=== PATIENT | male | born 1995 | race Caucasian/White ===

== ENCOUNTER 2016-09-16 08:30 | Emergency (ER) | payer BC ==
[~2016-09-16] VITALS: Wt 87.0 kg
[2016-09-16] MEDS ORDERED: KETOROLAC 30 MG INJ IV STA (09:03)
[2016-09-16] MEDS ORDERED: SOD CHLORIDE 0.9% 1,000 ML IV STA (09:03)
[2016-09-16 09:26] LABS: BASOPHIL # 0.1 10^3/ul (0.0-0.1); BASOPHILS % 0.5 % (0.0-2.0); EOSINOPHILS # 0.1 10^3/ul (0.0-0.5); EOSINOPHILS % 1.4 % (0.0-7.0); HEMATOCRIT 44.4 % (42.0-52.0); HEMOGLOBIN 15.1 g/dl (14.0-18.0); LYMPHOCYTES # 1.6 10^3/ul (0.8-2.9); LYMPHOCYTES % 17.5 % (15.0-51.0); MEAN CORPUSCULAR VOLUME 91.2 fl (82.0-101.0); MEAN PLATELET VOLUME 9.7 fl (7.4-10.4); MONOCYTES % 10.5 % (0.0-11.0); NEUTROPHIL # 6.4 10^3/ul (1.6-7.5); NEUTROPHILS % 69.9 % (39.0-77.0); PLATELET COUNT 343 10^3/UL (140-415); RED BLOOD COUNT 4.87 10^6/ul (4.70-6.10); RED CELL DISTRIBUTION WIDTH 12.6 % (11.5-14.5); WHITE BLOOD COUNT 9.1 10^3/ul (4.8-10.8)
--- NOTE | 2016-09-16 09:48 | RADRPT ---
PROCEDURE: CT Abdomen and pelvis without contrast. CLINICAL INDICATION: Right lower quadrant abdominal pain TECHNIQUE: CT scan of the abdomen and pelvis without contrast was performed on a multidetector hig h-resolution CT scan. . Coronal and sagittal reformatted images were obtained from the axial [facility] e images. Standard CT scan of the abdomen pelvis without contrast protocols were performed. The total exam CTDI equals 9.92 mGy and the total exam DLP equals 619.04 mGy-cm. One or more of the following dose reduction techniques were used: - Automated exposure control. - Adjustment of the mA and/or kV according to patient size. Use of iterative reconstruction technique. COMPARISON: None. FINDINGS: The kidneys are normal in size without hydronephrosis bilaterally. There is a 9 mm non-obstructing calcified calculus in the inferior right kidney. Additional punctate 2 mm non-obstructing inferior right renal calcified calculi. In the inferior left kidney is a 3 mm non-obstructing calcified calc ulus. No evidence of intra renal masses bilaterally. No evidence of calcified ureteral calculi. U rinary bladder is contracted but otherwise unremarkable. The prostate is unremarkable. The appendix is unremarkable. The stomach, small bowel and large bowel are unremarkable. Negative for intra-abdominal free air, free fluid, abscesses or lymphadenopathy. The liver spleen pancreas adrenal glands and gallbladder are unremarkable. No evidence biliary duct al dilation. The lung bases are unremarkable. There is a minimal S-shaped lower thoracic lumbar scoliosis. There are no acute osseous findings are osteoblastic/osteolytic lesions. The abdominal and pelvic galdamez are unremarkable. IMPRESSION: 1. Bilateral nonobstructing renal calcified calculi or extensive on the right as described above. Negative for obstructive uropathy. 2. Unremarkable appendix. Negative for intra-abdominal free air fluid abscesses or lymphadenopathy . RPTAT:AAJJ Physician Annie Date Time Electronically viewed and signed by Physician Annie on 09/16/2016 09:48 BM/
[2016-09-16 09:50] LABS: ALBUMIN 4.7 g/dl (3.3-4.9); ALBUMIN/GLOBULIN RATIO 1.74; BILIRUBIN,INDIRECT 0.5 mg/dl (0-1.1); BILIRUBIN,TOTAL 0.5 mg/dl (0.2-1.3); CALCIUM 9.7 mg/dl (8.4-10.2); CREATININE 0.94 mg/dl (0.61-1.24); POTASSIUM 4.6 mmol/L (3.5-5.1); TOTAL PROTEIN 7.4 g/dl (6.1-8.1)
[2016-09-16 10:37] LABS: ADD UMIC YES; UR ASCORBIC ACID NEGATIVE (NEGATIVE); UR BILIRUBIN (Dip) NEGATIVE (NEGATIVE); UR BLOOD (Dip) NEGATIVE (NEGATIVE); UR CLARITY CLEAR (CLEAR); UR COLOR YELLOW (YELLOW); UR GLUCOSE (Dip) NEGATIVE (NEGATIVE); UR KETONES (Dip) NEGATIVE (NEGATIVE); UR LEUKOCYTE ESTERASE (Dip) NEGATIVE Leu/ul (NEGATIVE); UR MUCUS FEW /HPF (NONE SEEN); UR NITRITE (Dip) NEGATIVE (NEGATIVE); UR RBC 2 /HPF (0-5); UR SPECIFIC GRAVITY (Dip) 1.019 (1.003-1.030); UR TOTAL PROTEIN (Dip) 1+ mg/dl (NEGATIVE); UR UROBILINOGEN (Dip) NEGATIVE (NEGATIVE)
[2016-09-16] MEDS ORDERED: HYDR-906 PO (11:04)
[2016-09-16] MEDS ORDERED: TAMS-14 PO (11:04)
[2016-09-16] MEDS ORDERED: NAPR-260 PO (11:04)
--- NOTE | 2016-09-16 11:15 | ERD ---
ER Documentation Chief Complaint Date/Time DATE: 09/16/16 TIME: 11:09 Chief Complaint RLQ ABD PAIN, ON AND OFF X1 YEAR, NO N/V HPI 20 year old male patient with a past medical history of nephrolithiasis presents to the ED complaining of right lower quadrant abdominal pain started yesterday. Patient reports that he has a few flare-ups per year for his abdominal pain. Patient describes as crampy. Reports that it radiates to his back. Denies any fever, nausea, vomiting, diarrhea, chest pain, shortness of breath. Patient reports that he does have a history of nephrolithiasis however states that this feels different. Denies any scrotal pain. ROS All systems reviewed and are negative except as per history of present illness. Medications Home Meds Active Scripts Tamsulosin Hcl* (Flomax*) 0.4 Mg Cap.er.24h, 0.4 MG PO BID, #30 CAP Prov:CHAPO FLORES PA-C 09/16/16 Naproxen* (Naprosyn*) 500 Mg Tablet, 500 MG PO BID Y for PAIN AND/OR INFLAMMATION, #30 TAB take with food Prov:CHAPO FLORES PA-C 09/16/16 Hydrocodone/Acetaminophen (Hotchkiss 5-325 Tablet) 1 Each Tablet, 1 TAB PO QHS Y for PAIN, #7 TAB Prov:CHAPO FLORES PA-C 09/16/16 PMhx/Soc History of Surgery: Yes (tonsillectomy) Anesthesia Reaction: No Hx Neurological Disorder: No Hx Respiratory Disorders: No Hx Cardiac Disorders: No Hx Psychiatric Problems: No Hx Miscellaneous Medical Probl: Yes (kidney stones) Hx Alcohol Use: No Hx Substance Use: No Hx Tobacco Use: No Smoking Status: Never smoker Physical Exam Vitals Vital Signs Date Time Temp Pulse Resp B/P Pulse Ox O2 Delivery O2 Flow Rate FiO2 09/16/16 08:32 98.2 70 18 137/74 100 Physical Exam Const: [id number], well-nourished. In no acute distress. Head: Atraumatic, normocephalic Eyes: Normal Conjunctiva without injection. No purulent discharge. ENT: Normal external ear, nose. Moist oropharynx without tonsillar exudates. Non -erythematous pharynx. Uvula midline. No drooling. No trismus. Neck: No cervical midline tenderness. Full range of motion. No meningismus. No cervical lymphadenopathy. No JVD. Resp: Clear to auscultation bilaterally. No wheezing, rhonchi, rales, or crackles. No accessory muscle use. No retractions. Cardio: Regular rate and rhythm. No murmurs, rubs or gallops. Abd: Soft, right lower quadrant tenderness, non distended. Normal bowel sounds. No palpable masses. No rebound tenderness. No guarding. Negative McBurney's point. Negative psoas sign. Negative obturator sign. Skin: No petechiae or rashes Back: No midline tenderness. No CVA tenderness. Ext: No cyanosis, or edema. Neur: Awake and alert. Normal gait. Normal coordination. Psych: Normal Mood and Affect Results 24 hrs Laboratory Tests Test 09/16/16 09:10 09/16/16 09:35 White Blood Count 9.110^3/ul Red Blood Count 4.8710^6/ul Hemoglobin 15.1g/dl Hematocrit 44.4% Mean Corpuscular Volume 91.2fl Mean Corpuscular Hemoglobin 31.0pg Mean Corpuscular Hemoglobin Concent 34.0g/dl Red Cell Distribution Width 12.6% Platelet Count 79575^3/UL Mean Platelet Volume 9.7fl Neutrophils % 69.9% Lymphocytes % 17.5% Monocytes % 10.5% Eosinophils % 1.4% Basophils % 0.5% Nucleated Red Blood Cells % 0.0/100WBC Neutrophils # 6.410^3/ul Lymphocytes # 1.610^3/ul Monocytes # 1.010^3/ul Eosinophils # 0.110^3/ul Basophils # 0.110^3/ul Nucleated Red Blood Cells # 0.010^3/ul Sodium Level 146mmol/L Potassium Level 4.6mmol/L Chloride Level 102mmol/L Carbon Dioxide Level 30mmol/L Anion Gap 19 Blood Urea Nitrogen 9mg/dl Creatinine 0.94mg/dl Glucose Level 105mg/dl Calcium Level 9.7mg/dl Total Bilirubin 0.5mg/dl Direct Bilirubin 0.00mg/dl Indirect Bilirubin 0.5mg/dl Aspartate Amino Transf (AST/SGOT) 200IU/L Alanine Aminotransferase (ALT/SGPT) 109IU/L Alkaline Phosphatase 83IU/L Total Protein 7.4g/dl Albumin 4.7g/dl Globulin 2.70g/dl Albumin/Globulin Ratio 1.74 Lipase 58U/L Urine Color YELLOW Urine Clarity CLEAR Urine pH 6.0 Urine Specific [place] 1.019 Urine Ketones NEGATIVEmg/dL Urine Nitrite NEGATIVEmg/dL Urine Bilirubin NEGATIVEmg/dL Urine Urobilinogen NEGATIVEmg/dL Urine Leukocyte Esterase NEGATIVELeu/ul Urine Microscopic RBC 2/HPF Urine Microscopic WBC 2/HPF Urine Mucus FEW/HPF Urine Hemoglobin NEGATIVEmg/dL Urine Glucose NEGATIVEmg/dL Urine Total Protein 1+mg/dl Current Medications Medications (Trade) Dose Ordered Sig/Nahomy Route PRN Reason Start Time Stop Time Status Last Admin Dose Admin Sodium Chloride (NS) 1,000 ml @ 1,000 mls/hr Q1H STAT IV 09/16/16 09:03 09/16/16 10:02 DC 09/16/16 09:19 Ketorolac Tromethamine (Toradol) 30 mg ONCE STAT IV 09/16/16 09:03 09/16/16 09:06 DC 09/16/16 09:20 Procedures/MDM This is a 20-year-old male patient with no significant past medical history presents to the ED complaining of right lower quadrant pain that started yesterday. Patient is afebrile and nontoxic-appearing. Patient has normal vital signs. Patient was further worked up with CBC, CMP, lipase, UA, CT of abdomen and pelvis without contrast. Patient's pain and symptoms have improved after treatment with 1 L of normal saline, 30 mg IV ketorolac. CBC: No leukocytosis. No e/o of systemic infection. No e/o anemia. CMP: No e/o severe acidosis, alkalosis, renal failure, diabetic ketoacidosis, liver disease Lipase within normal limits. Urine: No leukocyte esterase, no nitrites, no hematuria. PROCEDURE: CT Abdomen and pelvis without contrast. CLINICAL INDICATION: Right lower quadrant abdominal pain TECHNIQUE: CT scan of the abdomen and pelvis without contrast was performed on a multidetector high-resolution CT scan. . Coronal and sagittal reformatted images were obtained from the axial source images. Standard CT scan of the abdomen pelvis without contrast protocols were performed. The total exam CTDI equals 9.92 mGy and the total exam DLP equals 619.04 mGy- cm. One or more of the following dose reduction techniques were used: - Automated exposure control. - Adjustment of the mA and/or kV according to patient size. Use of iterative reconstruction technique. COMPARISON: None. FINDINGS: The kidneys are normal in size without hydronephrosis bilaterally. There is a 9 mm non-obstructing calcified calculus in the inferior right kidney. Additional punctate 2 mm non-obstructing inferior right renal calcified calculi. In the inferior left kidney is a 3 mm non-obstructing calcified calculus. No evidence of intra renal masses bilaterally. No evidence of calcified ureteral calculi. Urinary bladder is contracted but otherwise unremarkable. The prostate is unremarkable. The appendix is unremarkable. The stomach, small bowel and large bowel are unremarkable. Negative for intra-abdominal free air, free fluid, abscesses or lymphadenopathy. The liver spleen pancreas adrenal glands and gallbladder are unremarkable. No evidence biliary ductal dilation. The lung bases are unremarkable. There is a minimal S-shaped lower thoracic lumbar scoliosis. There are no acute osseous findings are osteoblastic/osteolytic lesions. The abdominal and pelvic galdamez are unremarkable. IMPRESSION: 1. Bilateral nonobstructing renal calcified calculi or extensive on the right as described above. Negative for obstructive uropathy. 2. Unremarkable appendix. Negative for intra-abdominal free air fluid abscesses or lymphadenopathy. Patient symptoms are likely due to nephrolithiasis as there are bilateral nonobstructing renal calcified calculi noted on the CT scan. No hydronephrosis. No obstruction. Low suspicion for septic renal stone. Low suspicion for gastritis, GERD, peptic ulcer disease, cholecystitis, choledocholithiasis, cholangitis, pancreatitis, appendicitis, bowel obstruction , ileus, volvulus, nephrolithiasis, pyelonephritis, hepatitis, perforated viscus , diverticulitis, abdominal hernia, acute abdomen, mesenteric ischemia or other emergent conditions. Discharge medications: Tamsulosin, Naproxen, Hotchkiss Follow up with primary care physician in 1-2 days for referral to urologist. Instructed patient to return to the ED sooner for any worsening symptoms. Patient's questions were answered. Patient understood and agreed with discharge plan. Patient discharged stable. Departure Diagnosis: Primary Impression: Nephrolithiasis Condition: Stable Patient Instructions: Kidney Stone W/ Colic Referrals: COMMUNITY CLINICS YOU HAVE RECEIVED A MEDICAL SCREENING EXAM AND THE RESULTS INDICATE THAT YOU DO NOT HAVE A CONDITION THAT REQUIRES URGENT TREATMENT IN THE EMERGENCY DEPARTMENT. FURTHER EVALUATION AND TREATMENT OF YOUR CONDITION CAN WAIT UNTIL YOU ARE SEEN IN YOUR DOCTORS OFFICE WITHIN THE NEXT 1-2 DAYS. IT IS YOUR RESPONSIBILITY TO MAKE AN APPOINTMENT FOR FOLOW-UP CARE. IF YOU HAVE A PRIMARY DOCTOR --you should call your primary doctor and schedule an appointment IF YOU DO NOT HAVE A PRIMARY DOCTOR YOU CAN CALL OUR PHYSICIAN REFERRAL HOTLINE AT IF YOU CAN NOT AFFORD TO SEE A PHYSICIAN YOU CAN CHOSE FROM THE FOLLOWING [facility] [address] [facility] [address] [facility] [facility] [address] [facility] [address] [facility] [address] [facility]. [facility] [address] [facility]. [facility] YOU HAVE RECEIVED A MEDICAL SCREENING EXAM AND THE RESULTS INDICATE THAT YOU DO NOT HAVE A CONDITION THAT REQUIRES URGENT TREATMENT IN THE EMERGENCY DEPARTMENT. FURTHER EVALUATION AND TREATMENT OF YOUR CONDITION CAN WAIT UNTIL YOU ARE SEEN IN YOUR DOCTORS OFFICE WITHIN THE NEXT 1-2 DAYS. IT IS YOUR RESPONSIBILITY TO MAKE AN APPOINTMENT FOR FOLOW-UP CARE. IF YOU HAVE A PRIMARY DOCTOR --you should call your primary doctor and schedule and appointment IF YOU DO NOT HAVE A PRIMARY DOCTOR YOU CAN CALL OUR PHYSICIAN REFERRAL HOTLINE AT . IF YOU CAN NOT AFFORD TO SEE A PHYSICIAN YOU CAN CHOSE FROM THE FOLLOWING [facility]: [facility] [address] [place] [address] [facility] [address] [place] [address] [facility] [address] [place] [address] [facility]RGENT [facility]/SPECIALTIES Additional Instructions: Call your primary care doctor TOMORROW for an appointment during the next 2-3 days for a referral to see a urologist.See the doctor sooner or return here if your condition worsens before your appointment time. CHAPO FLORES PA-C Sep 16, 2016 11:15 days for a referral to see a urologist.See the doctor sooner or return here if your condition worsens before your appointment time. CHAPO FLORES PA-C Sep 16, 2016 11:15
[2016-09-16 11:18] VITALS: BP 132/85; PULSE 85; RESP 18; TEMP 98.2
== END 2016-09-16 11:19 | disposition home or self-care (01) ==
LOC: FTE 08:30
DX: N12 Tubulo-interstitial nephritis, not specified as acute or chronic (principal)
CPT/HCPCS: 36415; 74176; 80053; 81001; 83690; 85025; 96374; 99285; J1885; J7030